=== PATIENT | female | born 1950 | race Caucasian/White ===

== ENCOUNTER 2017-01-23 09:52 | Emergency (ER) | payer OTHER ==
[~2017-01-23 09:52] MED LIST: *UNABLE1; ADVAIR INHALER INH; ADVAIR250 INH; CELEXA40 MG PO; CLARIT10 PO; COREG3 PO; COREG6 PO; CYMBALTA60 PO; DULOXETINE PO; FLEX PO; FLONASE NAS; IBU400 PO; INTEGRA PLUS PO; KLONO1 PO; KLOR-CON 88 MEQ PO; LEVAQUIN5T PO; LIOR10 PO; MAGOX4 PO; MELOXICAM PO; MOBIC15 MG PO; MUCINEX DM1 TAB PO; NEUR300 PO; OTC POTASSIUM PO; PERCOCET1 TA4 PO; PRILOSEC40 MG PO; PROAIR HFA INH; SPIRO25 PO; TEARS NATURA OPH; VENTOLIN HFA INH; X5 PO; [UNRECOGNIZED DRUG - OTHER] TOP
[2017-07-04] MEDS ORDERED: HALF81 PO (23:05)
[2017-07-04] MEDS ORDERED: SPIRO25 PO (23:05)
[2017-07-04] MEDS ORDERED: VOLTAREN1 % TOP (23:06)
[2017-07-04] MEDS ORDERED: OXYCOD PO (23:07)
[2017-07-04] MEDS ORDERED: DUONEB INH (23:07)
[2017-07-04] MEDS ORDERED: VITD PO (23:07)
[2017-07-04] MEDS ORDERED: MAGOX4 PO (23:08)
[2017-07-04] MEDS ORDERED: SINGULAIR1 PO (23:08)
[2017-07-04] MEDS ORDERED: TOPAMAX25 PO (23:08)
[2017-07-04] MEDS ORDERED: ATRONASAL6 NAS (23:09)
[2017-07-04] MEDS ORDERED: COREG3 PO (23:10)
[2017-07-04] MEDS ORDERED: FOSAMAX70 MG PO (23:10)
[2017-07-04] MEDS ORDERED: ANOROELLIPTA INH (23:10)
[2017-07-04] MEDS ORDERED: LIPITOR10 PO (23:11)
[2017-07-04] MEDS ORDERED: SEROQUEL50 MG PO (23:12)
[2017-07-04] MEDS ORDERED: PROAIR HFA INH (23:12)
[2017-07-04] MEDS ORDERED: NITROSTAT0.4 MG PO (23:12)
[2017-07-04] MEDS ORDERED: KLONO5 PO (23:12)
[2017-07-04] MEDS ORDERED: TUMS E-X750 M2 PO (23:14)
[2017-07-04] MEDS ORDERED: ROLAIDS PO (23:15)
[2017-07-04] MEDS ORDERED: SYSTANE OPH (23:15)
[2017-07-04] MEDS ORDERED: MIRALAX POWDER1 PKT PO (23:15)
[2017-07-04] MEDS ORDERED: CORTISONE INJECTION IM (23:16)
== END 2017-01-23 11:00 | disposition home or self-care (01) ==
LOC: ER 09:52
DX: M25.552 Pain in left hip (principal); M25.562 Pain in left knee; J44.9 Chronic obstructive pulmonary disease, unspecified; I10 Essential (primary) hypertension; Z88.5 Allergy status to narcotic agent; Z88.6 Allergy status to analgesic agent; Z91.040 Latex allergy status; Z88.8 Allergy status to other drugs, medicaments and biological substances; Z79.899 Other long term (current) drug therapy; W19.XXXA Unspecified fall, initial encounter
CPT/HCPCS: 73502-LT; 73560-LT; 96372; 99284; J1170

== ENCOUNTER 2017-04-12 18:24 | Inpatient (IN) | payer OTHER ==
--- NOTE | ~2017-04-12 | HP ---
History And Physical [facility] [address] [place]. [address] NAME: ASHLY SANTOYO : 50 STATUS : ADM Dannielle PAT#: [id number] AGE: 66 ADM/REG DATE : 04/12/17 MR#: [id number] REPORT SERV DATE: 04/13/17 DICTATED BY: DEVIN ROSALES DATE: 04/12/17 REPORT STATUS : Draft TRANSCRIBED BY: MODL DATE: 04/12/17 DATE OF ADMISSION: 04/12/2017 POINT OF ENTRY: [facility] Emergency Department. PRIMARY PROTOTYPE CARPENTER: Dr. Johnson. CHIEF COMPLAINT: Chest pain and dyspnea on exertion. HISTORY OF PRESENT ILLNESS: Ms. Bear is a 66-year-old female with a history of nonobstructive coronary disease as well as chronic systolic congestive heart failure with ejection fraction of 30 to 35% and COPD, who presents here today with a two-week history of progressive worsening chest pressure and dyspnea on exertion. The patient states that she is always short of breath secondary to COPD. However, over the last two weeks, she has noted worsening dyspnea on exertion. The patient also reports a two week history of almost constant left-sided chest pressure. Given these symptoms, she saw Dr. Reyna in clinic this week and was scheduled for an outpatient PET scan this Thursday. The patient presented to the emergency department for this evening as her chest pressure worsened over the last day and now creating chest pain. The patient also reports troubles over the last few weeks with headaches, nausea, and dizziness, but denies any sinus pain or pressure. Denies any fevers, night sweats, or chills. Does have some chronic postnasal drip. Initial evaluation in the emergency department notable for EKG that was nonischemic. Troponin elevated at 0.09. Labs otherwise unremarkable. CT scan of the brain was negative but did show an air-fluid level in the sinus concerning for possible acute sinusitis. Clinical correlation recommended. The patient was subsequently placed on a heparin drip. Attempt made to admission for the CPOU was declined by Cardiology given CT head findings of possible acute sinusitis. Therefore, the Hospitalist Service was asked to admit the patient. REVIEW OF SYSTEMS: Comprehensive review of systems otherwise negative unless listed in history of present illness. PREVIOUS MEDICAL HISTORY: 1. Nonobstructive coronary artery disease. 2. Chronic kidney stage 2. Baseline creatinine of approximately 1.1 to 1.2. 3. Chronic systolic congestive heart failure with ejection fraction of 30% to 35%. 4. Anxiety. 5. Depression. 6. Neuropathy. 7. Chronic pain, on chronic narcotics. History And Physical [address] [address] NAME: ASHLY SANTOYO : 50 STATUS : ADM Dannielle PAT#: [id number] AGE: 66 ADM/REG DATE : 04/12/17 MR#: [id number] REPORT SERV DATE: 04/13/17 DICTATED BY: DEVIN ROSALES DATE: 04/12/17 REPORT STATUS : Draft TRANSCRIBED BY: MADELYN DATE: 04/12/17 8. Obstructive sleep apnea, noncompliant with CPAP therapy. 9. COPD p.r.n. oxygen. SURGICAL HISTORY: 1. Abdominal hysterectomy. 2. Tubal ligation. 3. Cholecystectomy. 4. Umbilical hernia repair. 5. Thoracic spinal fusion. 6. Bilateral TKA. 7. AICD insertion. 8. Gastric bypass. 9. Single oophorectomy. ALLERGIES: 1. ALBUTEROL 2 PUFF INHALATION P.R.N. 2. ASPIRIN 80 MG DAILY. 3. ATORVASTATIN 10 MG AT BEDTIME. 4. CARVEDILOL 3.125 MG B.I.D. 5. KLONOPIN 0.5 MG DAILY. 6. VITAMIN D 50,000 UNITS WEEKLY. 7. MAGNESIUM OXIDE 400 MG DAILY. 8. NITROGLYCERIN 0.4 MG SUBLINGUAL P.R.N. 9. ROXICODONE 10 MG Q.4 HOURS P.R.N. 10.SEROQUEL 50 MG AT BEDTIME. 11.ALDACTONE 12.5 MG DAILY P.R.N. SOCIAL HISTORY: She is a former smoker, quit about 10 years ago. Denies any alcohol or illicits. FAMILY MEDICAL HISTORY: Mother with cancer. Father as well as siblings with coronary artery disease. LABS AND IMAGIN. White count 10.3, hemoglobin 11.8, hematocrit 38.1, and platelet count 183. INR 1.2. 2. Sodium is 143, potassium 3.8, chloride 110, carbon dioxide 28, BUN 16, creatinine 1.1, glucose is 105, calcium is 8.5, and magnesium is 1.9. 3. Lipase is 189. 4. CK is 28, CK-MB is less than 0.5, troponin 0.09. 5. CT scan of the brain is negative for any acute intracranial abnormality. It is concerning for possible acute sinusitis with evidence of a right sphenoid possible air- fluid level. 6. Chest x-ray per my review shows no acute cardiopulmonary abnormality. 7. EKG per my review shows normal sinus rhythm and occasional PVCs with no evidence of any acute ischemia or infarction. PHYSICAL EXAMINATION: History And Physical [address] [address] NAME: ASHLY SANTOYO : 50 STATUS : ADM Dannielle PAT#: [id number] AGE: 66 ADM/REG DATE : 04/12/17 MR#: [id number] REPORT SERV DATE: 04/13/17 DICTATED BY: DEVIN ROSALES DATE: 04/12/17 REPORT STATUS : Draft TRANSCRIBED BY: MODChelo DATE: 04/12/17 VITAL SIGNS: Temperature is 98.3 degrees Fahrenheit, pulse is 79, respirations 22, saturating 95% on room air, and blood pressure 147/65. GENERAL: The patient is awake, alert, in no acute distress. Resting comfortably in bed. She is a well-developed, well-nourished, female. HEENT: Atraumatic and normocephalic. Moist mucous membranes. Pupils equal, round, and reactive to light and accommodation. Extraocular eye movements intact. No scleral icterus. I do not appreciate any sinus pressure on palpation. NECK: No jugular venous distention. No carotid bruits. CARDIAC: Regular rate and rhythm. No murmurs or gallops. Normal S1, S2. LUNGS: Clear to auscultation bilaterally. No wheezes, rhonchi, or crackles. ABDOMEN: Soft, nontender, nondistended. Good bowel sounds. No rebound, guarding, or rigidity. EXTREMITIES: Warm and perfused. No cyanosis, clubbing, with trace pedal edema. SKIN: Warm and dry. PSYCH: Affect appropriate. NEURO: Alert and oriented x3. Cranial nerves 2 through 12 grossly intact. Speech is normal. Gait not assessed. ASSESSMENT: Ms. Santoyo is a 66-year-old female who presents with multiple complaints but primarily dyspnea on exertion as well as progressive worsening of chest pressure and chest pain, in fact was found to have a troponin of 0.09 concerning for ACS and mmd-EF-txiphklpj myocardial infarction. PROBLEM LIST: 1. ACS - ztm-LK-eyuzkpkok myocardial infarction. 2. Dyspnea on exertion. 3. Chronic systolic congestive heart failure. 4. Possible acute sinusitis. 5. Headache. 6. History of COPD, not on home oxygen without exacerbation at this time. PLAN: 1. ACS - lzy-ZM-pecbvquye myocardial infarction. We will place the patient on a heparin drip. She is on a daily aspirin. We will increase her atorvastatin to 40 mg at bedtime. Continue her home beta-emily with carvedilol 3.125 mg b.i.d. Cardiology will be consulted in the morning. We will make the patient nothing by mouth in anticipation of possible cardiac catheterization versus alternative cardiac imaging. We will continue to trend out cardiac enzymes. 2. Dyspnea on exertion. Unclear etiology at this time. Chest x-ray is clear. Her exam is clear at this time, likely related to ACS. We will check a BNP level. Continue the patient's home p.r.n. albuterol. I do not appreciate any exacerbation of COPD at this time. 3. Possible acute sinusitis. We will empirically place the patient on some oral Augmentin to see if this helps with the patient's symptoms primarily including headache. 4. Headache. CT scan of brain was negative except for possible acute sinusitis. Place the patient on Augmentin as well as some low-dose pain control. 5. DVT prophylaxis. Heparin infusion. History And Physical [address] [address] NAME: ASHLY SANTOYO : 50 STATUS : ADM Dannielle PAT#: [id number] AGE: 66 ADM/REG DATE : 04/12/17 MR#: [id number] REPORT SERV DATE: 04/13/17 DICTATED BY: DEVIN ROSALES DATE: 04/12/17 REPORT STATUS : Draft TRANSCRIBED BY: MADELYN DATE: 04/12/17 CODE STATUS: The patient wishes to be full code. LENORA/MADELYN Devin Rosales MD / [id number] CC: Dariel Patino M.D. William Warren, M.D.
--- NOTE | ~2017-04-12 | CN ---
Consultation Report [facility] [address] [place]. [address] NAME: SAHLY SANTOYO : 50 STATUS : ADM Dannielle PAT#: [id number] AGE: 66 ADM/REG DATE : 04/12/17 MR#: [id number] REPORT SERV DATE: 04/14/17 DICTATED BY: KEITH CUMMINGS DATE: 04/13/17 REPORT STATUS : Draft TRANSCRIBED BY: MODL DATE: 04/13/17 DATE OF CONSULTATION: 04/13/2017 REASON FOR CONSULTATION: Chest pressures. PRIMARY BODY TECHNICIAN/PAINTER: Jose R Johnson M.D. HISTORY OF PRESENT ILLNESS: Ms. Santoyo is a pleasant 66-year-old female with a history of nonischemic cardiomyopathy (LVEF 30%, echo 2014); hypertension; hyperlipidemia; sleep apnea, not compliant with CPAP; and mild nonobstructive coronary disease as of angiogram in 2014, who presents to [facility] with complaints of ongoing chest pressures. She has had chest pressures ranging from 2/10 to 6/10 as well as increased dyspnea, dizziness, and nausea over the past two to three weeks. She was recently seen at the [facility] by Dr. Reyna with a plan to have a cardiac PET stress test this week. She reports that her pressures were bothersome enough for her to present to the hospital prior to completion of this test. She otherwise has no new complaints. She does have some headaches as well that started about a month ago and have increased in intensity over the past few weeks. Here, she has had cardiac enzymes that have been flat with a troponin of 0.09, 0.09, and 0.08 and CK of 28 and 30 as well as the MB fraction that is negative at less than 0.5 and 1.0. Her BNP is 30.5. ALLERGIES: 1. CODEINE. 2. THIOPENTAL. 3. LATEX. 4. MORPHINE. 5. PAPER TAPE. SOCIAL HISTORY: Lives at home with her . Denies drinking alcohol, smoking, or doing drugs. FAMILY HISTORY: Noncontributory for premature cardiovascular disease. REVIEW OF SYSTEMS: As above, all other systems otherwise negative. HOME MEDICATIONS: 1. Albuterol. 2. Aspirin. 3. Lipitor. 4. Coreg. 5. Klonopin. 6. Vitamin D. 7. Mag-Ox. 8. Nitroglycerin as needed. Consultation Report [facility] [address] [place]. [address] NAME: ASHLY SANTOYO : 50 STATUS : ADM Dannielle PAT#: [id number] AGE: 66 ADM/REG DATE : 04/12/17 MR#: [id number] REPORT SERV DATE: 04/14/17 DICTATED BY: KEITH CUMMINGS DATE: 04/13/17 REPORT STATUS : Draft TRANSCRIBED BY: MADELYN DATE: 04/13/17 9. Roxicodone. 10.Seroquel. 11.Aldactone. PHYSICAL EXAMINATION: VITAL SIGNS: Blood pressure 139/60, pulse 64 and sinus rhythm, temperature 96.9. GENERAL: Morbidly obese, no acute distress, well developed, well nourished, conversant. NEURO: Awake, alert, and oriented x3. No focal deficits, appropriate mood. HEENT: Moist mucous membranes. Anicteric sclerae. No nasal discharge. NECK: No JVD. No carotid bruit. RESPIRATORY: Normal work of breathing. Diminished breath sounds throughout. CARDIAC: Regular rate and rhythm. Diminished cardiac sounds. No obvious murmurs, rubs, or gallops. ABD: Soft, non-tender, non-distended. No rebound or guarding. EXT: 1+ peripheral pulses bilaterally with trace edema in her bilateral lower extremities. SKIN: Warm, dry, and intact. No rash. PERTINENT TEST FINDINGS: Potassium 3.8, creatinine 1.1. White blood cell count 9.6, hemoglobin 11.7. Troponin 0.09, 0.09, and 0.08; CPK 28 and 30; CK-MB less than 0.5 and 1.0. BNP 30.5. EKG with sinus bradycardia, left axis deviation, borderline criteria for LVH with repolarization abnormality, occasional PVCs, no definitive ischemic ST-T changes. IMPRESSION AND PLAN: Ms. Santoyo is a pleasant 66-year-old female with a history of nonischemic cardiomyopathy (30%) and nonobstructive/mild coronary artery disease as of angiogram two years ago, who presents with ongoing substernal chest pressures and flat troponin trend with normal CPK and normal CK-MB fractions. Her EKG is also not particularly remarkable. In light of these collective findings, I recommend proceeding with a cardiac PET stress test today. In addition, it will be helpful to update her functional data with a repeat echocardiogram at this time. Otherwise, she is fully compensated from a heart failure perspective and appears to be euvolemic today. Accordingly, I recommend continuation of her cardiovascular regimen without change at this time. SEBASTIÁN/MADELYN Keith Cummings MD / [id number] CC: Dariel Patino M.D.
--- NOTE | ~2017-04-12 | CN ---
Consultation Report [facility] [address] [place]. [address] NAME: ASHLY SANTOYO : 50 STATUS : ADM Dannielle PAT#: [id number] AGE: 66 ADM/REG DATE : 04/12/17 MR#: [id number] REPORT SERV DATE: 04/14/17 DICTATED BY: ASHLEY VILLANUEVA DATE: 04/13/17 REPORT STATUS : Draft TRANSCRIBED BY: MODL DATE: 04/13/17 NEUROLOGY CONSULTATION DATE OF CONSULTATION: 04/13/2017 REASON FOR CONSULTATION: Headache and abnormal CT finding. HOSPITALIST: Bisi Williamson M.D. INFANT AND TODDLER TEACHER: Jose R Johnson M.D. HISTORY OF PRESENT ILLNESS: The patient is a 66-year-old female, who presented to the hospital with a two-week history of open "chest pressure." The patient states she did not have chest pain, rather she had pressure across her chest with dyspnea on exertion. Granted the patient has COPD and constantly has dyspnea on exertion, but over the last two weeks, it has significantly worsened. She also mentions that she has had constant left-sided chest pressure. Because of this, she went and saw Dr. Reyna in the office last week and he scheduled her to have a PET scan on Thursday. The patient also complained of a sudden onset of severe headache. This happened around the same time she started to have left-sided chest pressure. The headache came on suddenly and she had associated nausea without vomiting. When asked to rate her pain at that time on a Likert scale of 0 to 10, she rated it at 7/10. She stated that the headache was predominantly occipital with some neck stiffness. She denied any fever, chills, diaphoresis, or diarrhea. During that first week, her headache would come and go, however, by the second week, she had a constant headache, which again was predominantly in the occipital region with associated neck stiffness. Again, she rated it at 7/10. She denied any photophobia or phonophobia. PAST MEDICAL HISTORY: Nonobstructive coronary artery disease, chronic systolic heart failure with an EF of 30% to 35% (AICD), COPD, chronic kidney disease stage 2, depression, anxiety, neuropathy, chronic pain secondary to scoliosis, chronic narcotic use, history of tobacco abuse, obesity, scoliosis, obstructive sleep apnea, and noncompliance with CPAP. PAST SURGICAL HISTORY: Total abdominal hysterectomy with unilateral oophorectomy, tubal ligation, cholecystectomy, umbilical hernia repair, thoracic spinal fusion, five knee surgeries without a total knee arthroplasty, AICD placement, gastric bypass, bladder suspension, and UPPP. MEDICATIONS: Home medication list includes albuterol inhaler, aspirin 81 mg daily, Lipitor 10 mg at bedtime, Coreg 3.125 mg twice a day, Klonopin 0.5 mg daily p.r.n., vitamin D3 50,000 units weekly, magnesium oxide 400 mg daily, nitroglycerin 0.4 mg sublingual p.r.n., oxycodone 10 mg every four hours p.r.n., Seroquel 50 mg at bedtime, and Aldactone 12.5 mg daily p.r.n. edema. ALLERGIES: CODEINE, PENTOTHAL, LATEX, MORPHINE, ASPIRIN INTOLERANCE, AND PAPER TAPE. Consultation Report [address] [address] NAME: ASHLY SANTOYO : 50 STATUS : ADM Dannielle PAT#: [id number] AGE: 66 ADM/REG DATE : 04/12/17 MR#: [id number] REPORT SERV DATE: 04/14/17 DICTATED BY: ASHLEY VILLANUEVA DATE: 04/13/17 REPORT STATUS : Draft TRANSCRIBED BY: MADELYN DATE: 04/13/17 SOCIAL HISTORY: The patient is . She has two children. She is disabled from her scoliosis and chronic pain. She quit smoking 10 years ago. Does not drink alcohol or use illicits. FAMILY HISTORY: The patient's mother at the age of 62 from lung cancer. Her father is 88 and still alive, he has had a myocardial infarction. She has three brothers who are alive, among them they suffer from diabetes, hypertension, one has had an NC and one has mild mental retardation. REVIEW OF SYSTEMS: Please refer to HPI for pertinent positives. PHYSICAL EXAMINATION: VITAL SIGNS: The patient is a 66-year-old female, who stands 5 feet 5 inches tall and weighs 250 pounds. She is afebrile. Heart rate 71, respiratory rate 16, O2 saturations on room air of 93%, blood pressure 120/57. NEURO: The patient was asleep, but awakened easily. She is oriented x4. She is cooperative. Speech is clear. Language fluent. Pupils are 3 mm. PERRLA. Cranial nerves 2 through 12 are intact. Vision via confrontation is full in both marion. No pronator drift. No dysmetria, tremor, or asterixis. No ataxia with uhynpw-es-nltb or zgbc-ov-ttht. Upper extremity strength is 5/5. Upper DTRs are 1+ bilaterally. No reported sensory deficits. Lower extremity strength is 4/5 bilaterally. No reported sensory deficits. Lower DTRs are 1+ bilaterally. Downgoing toes. The patient can get out of the bed without any difficulty. Good locomotion. Gait is unbalanced due to scoliosis, however, she is non- ataxic. She is unable to tandem. Romberg negative. NECK: No carotid bruits, JVD, or thyromegaly. CHEST: Lung sounds reveal musical wheezes. No cough. CARDIAC: Regular rate and rhythm. LABORATORY DATA: CBC normal. BMP on 04/12/2017 was normal. Troponin mildly elevated at 0.09 and 0.08 consecutively. IMAGING: CT of the brain shows a subtle density in the right frontal lobe, which was not visualized on her last CT of the brain. Chest x-ray, no acute changes. ASSESSMENT AND PLAN: 1. Abnormal CT of the brain, etiology unknown. The patient is unable to have an MRI due to her AICD. She will have to have a CT repeated with contrast and a CTA of the head and neck. Differential diagnoses could include malignancy, old stroke, aneurysm, or artifact. 2. Severe headache, most likely secondary to #1. At this time, the patient will be given a Depakote cocktail, which would include Depacon 250 mg IV plus Compazine 5 mg IV plus Ativan 0.25 mg IV. The patient requested to have this given after supper. She will also have lab work, which will include a C-reactive protein and sedimentation rate. If Consultation Report [address] [place]. [address] NAME: ASHLY SANTOYO : 50 STATUS : ADM Dannielle PAT#: [id number] AGE: 66 ADM/REG DATE : 04/12/17 MR#: [id number] REPORT SERV DATE: 04/14/17 DICTATED BY: ASHLEY VILLANUEVA DATE: 04/13/17 REPORT STATUS : Draft TRANSCRIBED BY: MADELYN DATE: 04/13/17 all the above come back negative, the patient will undergo a lumbar puncture to rule out meningitis. 3. Non-ST segment elevation myocardial infarction, this was managed per Cardiology. Thank you again for including us in consultation. We will follow with you. TAVON/MADELYN Ashley Villanueva DNP, ACNP-BC / [id number] CC: Dariel Patino M.D.
--- NOTE | ~2017-04-12 | DS ---
Discharge Summary [facility] [address] [place]. [address] NAME: ASHLY SANTOYO : 50 STATUS : DIS IN PAT#: [id number] AGE: 66 ADM/REG DATE : 04/12/17 MR#: [id number] REPORT SERV DATE: 04/15/17 DICTATED BY: ORTIZ HARRIS DATE: 04/15/17 REPORT STATUS : Draft TRANSCRIBED BY: MODL DATE: 04/15/17 ADMISSION DATE: 04/12/2017 DISCHARGE DATE: 04/15/2017 FINAL HOSPITAL DIAGNOSES: 1. Chest pain. 2. Headache. 3. Chronic kidney disease. 4. Anxiety and depression. CONSULTATIONS: 1. Cardiology, Dr. Bacon. 2. Neurology. PROCEDURES: 1. CT scan of the brain done on 04/12/2017 showing subtle density in the right frontal region not described on the presented report. If headaches persist, recommend MRI. CTA of the brain showing unremarkable MRA of the carotid, dominant left vertebral, otherwise normal caliber, antegrade flow, bilateral vertebral arteries. Unremarkable intracranial MRA. 2. LP done on 04/14/2017 showing no wbc's, no positive cultures as of yet. Opening pressure was 31. 3. Cardiac PET done on the 04/13/2017 showing no ischemia. Overall indeterminate risk scan due to moderately decreased LV systolic function. 4. Echocardiogram done on 04/14/2017 showing EF of 40%, comparing to 38 on PET, and 35% back in May of 2015. Moderate LV diastolic dysfunction, right ventricular systolic function, intact trace mitral and tricuspid regurgitation. CURRENT PHYSICAL SIGNS AND HISTORY OF PRESENT ILLNESS: Please see the dictated H and P by Dr. Anderson. In brief, the patient is a 66-year-old female, who was admitted with complaint of chest pain and headache. Vital signs at the time of admission were stable, and the patient has been afebrile during her hospital stay. Lab work; initial creatinine was 1.11. Subsequent recheck was 1.2. Electrolytes were otherwise unremarkable. Troponin were 0.09, 0.09, 0.08, and 0.08. C-reactive protein was slightly elevated at 12.5. Spinal tap showed a protein of 47.7. No leukocytosis or significant anemia on her CBC. HSV is pending on her tap. HOSPITAL COURSE: The patient was admitted. Home medications were reviewed and ordered appropriately. She was started on heparin protocol for her chest pain. Cardiology and Neurology were consulted. Cardiology recommended the echo and PET, and when these were negative, I did not recommend any further intervention. Dr. Williamson initially took care of the patient in consult and Neurology recommendation and referred the MRI; however, it was noted the patient's pacer was noncompatible. She then underwent a lumbar puncture, which was as noted above. When patient ruled out, her heparin drip was discontinued. I saw the patient the following day, her symptoms were improving, but did not resolve. She stayed an additional 24 hours. She had some relief with her Topamax. We discussed other Discharge Summary [address] [place]. [address] NAME: ASHLY SANTOYO : 50 STATUS : DIS IN PAT#: [id number] AGE: 66 ADM/REG DATE : 04/12/17 MR#: [id number] REPORT SERV DATE: 04/15/17 DICTATED BY: ORTIZ HARRIS DATE: 04/15/17 REPORT STATUS : Draft TRANSCRIBED BY: MADELYN DATE: 04/15/17 interventions including further referrals, titration of her medications. She preferred to be discharged home with outpatient followup. DISPOSITION: She is discharged home. We will schedule a followup Neurology appointment in one to two months. We will schedule her to follow up with her PCP in one to two weeks. HOME MEDICATIONS: Prescription written for Topamax 50 #30 one per day and Augmentin 875 b.i.d. to finish treatment for sinusitis. She will otherwise continue aspirin 81, Lipitor 10, Coreg 3.125 b.i.d., vitamin D, magnesium 400 daily, albuterol inhaler, Nitrostat p.r.n. sublingual, Seroquel 50 at h.s., Klonopin 0.5 daily, Percocet 10 q.4, and Aldactone 12.5 one per day. DICTATED BY: Dariel Peña/MADELYN Ortiz Harris M.D. / [id number] CC: Dariel Peña M.D.
[2017-04-12 18:51] LABS: BASOPHILS 0.2 %; BASOPHILS ABSOLUTE 0.02 10/3/uL (0.0-0.16); EOSINOPHILS 2.8 %; EOSINOPHILS ABSOLUTE 0.29 10/3/uL (0.0-0.53); ER CBC TAT 0 Hrs 12 Mins; HEMATOCRIT 38.1 % (36.0-48.0); HEMOGLOBIN 11.8 g/dL (12.0-16.0); IMMATURE GRANULOCYTES 0.2 %; IMMATURE GRANULOCYTES ABSOLUTE 0.02 10/3/uL (0.0-0.11); MANUAL DIFF NO %; MEAN CORPUSCULAR HEMOGLOB 29.4 pg (26.0-34.0); MEAN CORPUSCULAR VOLUME 94.8 fL (80-100); MEAN PLATELET VOLUME 11.5 fL (9.2-13.0); MONOCYTES 7.4 %; MONOCYTES ABSOLUTE 0.76 10/3/uL (0.21-1.20); NEUTROPHILS 53.4 %; PLATELET COUNT 183 10/3/uL (150-400); RBC DISTRIBUTION WIDTH 13.6 % (12.0-16.0); RED CELL COUNT 4.02 10/6/uL (4.0-5.6); WHITE BLOOD CELLS 10.3 10/3/uL (4.5-10.5)
[2017-04-12 18:57] LABS: INTERNATIONAL NORMAL RATI 1.2 UNITS (-); PARTIAL THROMBO TIME 29.2 SEC (22.5-37.2); PROTIME (NOT ORD) 14.6 SEC (12.0-14.5)
[2017-04-12 19:13] LABS: BUN (BLOOD UREA NITROGEN) 16 MG/DL (6-23); CALCIUM, SERUM 8.5 MG/DL (8.5-10.4); CHLORIDE, SERUM 110 MMOL/L (96-112); CO2 (CARBON DIOXIDE) 28 MMOL/L (24-34); CREATININE 1.11 MG/DL (0.55-1.02); GFR AFRICAN AMERICAN 60 ML/MIN (>=60); GFR NON AFRICAN AMERICAN 52 ML/MIN (>=60); GLUCOSE, SERUM 105 MG/DL (60-99); POTASSIUM, SERUM 3.8 MMOL/L (3.5-5.3); SODIUM, SERUM 143 MMOL/L (135-148)
[2017-04-12 19:15] LABS: CHEST PAIN PROFILE TAT 0 Hrs 36 Mins; TROPONIN I 0.09 NG/ML (<0.05)
[2017-04-12 20:27] LABS: CPK 28 U/L (0-200)
[2017-04-12 20:28] LABS: CK-MB < 0.5 NG/ML
[2017-04-12] MEDS ORDERED: ASAB PO (21:51)
[2017-04-12] MEDS ORDERED: VITD PO (21:52)
[2017-04-12] MEDS ORDERED: NITROQUICK0.4 MG SL (21:52)
[2017-04-12] MEDS ORDERED: LIPITOR10 PO (21:52)
[2017-04-12] MEDS ORDERED: SEROQUEL50 MG PO (21:52)
[2017-04-12] MEDS ORDERED: COREG3 PO (21:53)
[2017-04-12] MEDS ORDERED: KLONO5 PO (21:53)
[2017-04-12] MEDS ORDERED: MAGOX4 PO (21:54)
[2017-04-12] MEDS ORDERED: OXYCOD PO (21:54)
[2017-04-12] MEDS ORDERED: SPIRO25 PO (21:55)
[2017-04-13 06:45] LABS: BASOPHILS 0.3 %; BASOPHILS ABSOLUTE 0.03 10/3/uL (0.0-0.16); EOSINOPHILS 3.3 %; EOSINOPHILS ABSOLUTE 0.32 10/3/uL (0.0-0.53); HEMATOCRIT 37.7 % (36.0-48.0); HEMOGLOBIN 11.7 g/dL (12.0-16.0); IMMATURE GRANULOCYTES 0.2 %; IMMATURE GRANULOCYTES ABSOLUTE 0.02 10/3/uL (0.0-0.11); LYMPHOCYTES 45.8 %; LYMPHOCYTES ABSOLUTE 4.39 10/3/uL (0.67-4.30); MEAN CORPUSCULAR HEMOGLOB 29.8 pg (26.0-34.0); MEAN CORPUSCULAR VOLUME 95.9 fL (80-100); MEAN PLATELET VOLUME 11.5 fL (9.2-13.0); MONOCYTES 7.7 %; MONOCYTES ABSOLUTE 0.74 10/3/uL (0.21-1.20); NEUTROPHILS 42.7 %; NEUTROPHILS ABSOLUTE 4.09 10/3/uL (2.02-8.40); PLATELET COUNT 176 10/3/uL (150-400); RBC DISTRIBUTION WIDTH 13.5 % (12.0-16.0); RED CELL COUNT 3.93 10/6/uL (4.0-5.6); WHITE BLOOD CELLS 9.6 10/3/uL (4.5-10.5)
[2017-04-13 06:51] LABS: MANUAL DIFF NO %
[2017-04-13 06:58] LABS: CPK 30 U/L (0-200); HDL CHOLESTEROL 39 MG/DL (> 49); SGPT(ALT) 26 U/L (5-65)
[2017-04-13 07:00] LABS: CHOL/HDL RATIO(NOT ORDER) 3.1 (0-5); CHOLESTEROL 122 MG/DL (< 200); LDL CHOLESTEROL 53 MG/DL (< 130); NON-HDL CHOLESTEROL 83 MG/DL (< 160); TRIGLYCERIDE 153 MG/DL (< 150); TROPONIN I 0.08 NG/ML (<0.05)
[2017-04-13 13:16] LABS: CPK 33 U/L (0-200)
[2017-04-13 13:20] LABS: CK-MB 1.1 NG/ML; TROPONIN I 0.08 NG/ML (<0.05)
[2017-04-14 06:28] LABS: BASOPHILS 0.4 %; BASOPHILS ABSOLUTE 0.03 10/3/uL (0.0-0.16); EOSINOPHILS 4.1 %; EOSINOPHILS ABSOLUTE 0.33 10/3/uL (0.0-0.53); HEMATOCRIT 37.1 % (36.0-48.0); HEMOGLOBIN 11.5 g/dL (12.0-16.0); IMMATURE GRANULOCYTES 0.2 %; IMMATURE GRANULOCYTES ABSOLUTE 0.02 10/3/uL (0.0-0.11); LYMPHOCYTES ABSOLUTE 3.41 10/3/uL (0.67-4.30); MANUAL DIFF NO %; MEAN CORPUSCULAR HEMOGLOB 29.6 pg (26.0-34.0); MEAN CORPUSCULAR VOLUME 95.6 fL (80-100); MEAN PLATELET VOLUME 11.8 fL (9.2-13.0); MONOCYTES 8.1 %; MONOCYTES ABSOLUTE 0.66 10/3/uL (0.21-1.20); NEUTROPHILS 45.2 %; NEUTROPHILS ABSOLUTE 3.67 10/3/uL (2.02-8.40); PLATELET COUNT 173 10/3/uL (150-400); RBC DISTRIBUTION WIDTH 13.8 % (12.0-16.0); RED CELL COUNT 3.88 10/6/uL (4.0-5.6); WHITE BLOOD CELLS 8.1 10/3/uL (4.5-10.5)
[2017-04-14 06:53] LABS: ALBUMIN 3.1 G/DL (3.5-5.0); BUN (BLOOD UREA NITROGEN) 16 MG/DL (6-23); CALCIUM, SERUM 8.6 MG/DL (8.5-10.4); CHLORIDE, SERUM 108 MMOL/L (96-112); CO2 (CARBON DIOXIDE) 26 MMOL/L (24-34); GFR AFRICAN AMERICAN 55 ML/MIN (>=60); GFR NON AFRICAN AMERICAN 47 ML/MIN (>=60); GLOBULIN 3.1 G/DL (2.5-4.1); GLUCOSE, SERUM 114 MG/DL (60-99); POTASSIUM, SERUM 4.4 MMOL/L (3.5-5.3); SGOT(AST) 16 U/L (5-40); SGPT(ALT) 27 U/L (5-65); SODIUM, SERUM 140 MMOL/L (135-148); TOTAL BILIRUBIN 0.3 MG/DL (0-1.2); TOTAL PROTEIN 6.2 G/DL (6.0-8.5)
[2017-04-14 06:56] LABS: ALKALINE PHOSPHATASE 103 U/L (45-117); C-REACTIVE PROTEIN 12.5 MG/L (<8.0)
[2017-04-14 07:27] LABS: SED RATE 14 MM/HR (0-20)
[2017-04-14 12:26] LABS: PARTIAL THROMBO TIME 29.1 SEC (22.5-37.2); PROTIME (NOT ORD) 13.5 SEC (12.0-14.5)
[2017-04-14 15:15] LABS: CSF APPEARANCE (NOT ORD) CLEAR (CLEAR); CSF BASO 0 % (NO REF RANGE); CSF COLOR (NOT ORD) COLORLESS (COLORLESS); CSF EOS 0 % (0-1); CSF LYMPH (NOT ORD) 70 % (28-96); CSF MONO 20 % (16-56); CSF RBC (NOT ORD) 0 MM3 (NO REFERENCE); CSF SEGS (NOT ORD) 10 % (0-7); CSF WBC (NOT ORD) 2 /uL (0-10); CSF XANTHROCHROMIA NEG (NEG)
[2017-04-14 15:21] LABS: CSF APPEARANCE (NOT ORD) CLEAR (CLEAR); CSF BASO 0 % (NO REF RANGE); CSF COLOR (NOT ORD) COLORLESS (COLORLESS); CSF EOS 0 % (0-1); CSF LYMPH (NOT ORD) 78 % (28-96); CSF MONO 22 % (16-56); CSF RBC (NOT ORD) 5 MM3 (NO REFERENCE); CSF SEGS (NOT ORD) 0 % (0-7); CSF WBC (NOT ORD) 2 /uL (0-10); CSF XANTHROCHROMIA NEG (NEG)
[2017-04-14 15:43] LABS: TOTAL PROTEIN, CSF 47.7 MG/DL (15-45)
[2017-04-15] MEDS ORDERED: AUG875 PO (14:50)
[2017-04-15] MEDS ORDERED: TOPAMAX50 MG PO (14:51)
[2017-04-17 12:46] LABS: HSV DNA TYPE 1 Not Detected (NOTDET); HSV DNA TYPE 2 Not Detected (NOTDET)
[2017-07-04] MEDS ORDERED: SPIRO25 PO (23:05)
[2017-07-04] MEDS ORDERED: HALF81 PO (23:05)
[2017-07-04] MEDS ORDERED: VOLTAREN1 % TOP (23:06)
[2017-07-04] MEDS ORDERED: VITD PO (23:07)
[2017-07-04] MEDS ORDERED: OXYCOD PO (23:07)
[2017-07-04] MEDS ORDERED: DUONEB INH (23:07)
[2017-07-04] MEDS ORDERED: MAGOX4 PO (23:08)
[2017-07-04] MEDS ORDERED: TOPAMAX25 PO (23:08)
[2017-07-04] MEDS ORDERED: SINGULAIR1 PO (23:08)
[2017-07-04] MEDS ORDERED: ATRONASAL6 NAS (23:09)
[2017-07-04] MEDS ORDERED: COREG3 PO (23:10)
[2017-07-04] MEDS ORDERED: FOSAMAX70 MG PO (23:10)
[2017-07-04] MEDS ORDERED: ANOROELLIPTA INH (23:10)
[2017-07-04] MEDS ORDERED: LIPITOR10 PO (23:11)
[2017-07-04] MEDS ORDERED: SEROQUEL50 MG PO (23:12)
[2017-07-04] MEDS ORDERED: PROAIR HFA INH (23:12)
[2017-07-04] MEDS ORDERED: NITROSTAT0.4 MG PO (23:12)
[2017-07-04] MEDS ORDERED: KLONO5 PO (23:12)
[2017-07-04] MEDS ORDERED: TUMS E-X750 M2 PO (23:14)
[2017-07-04] MEDS ORDERED: SYSTANE OPH (23:15)
[2017-07-04] MEDS ORDERED: ROLAIDS PO (23:15)
[2017-07-04] MEDS ORDERED: MIRALAX POWDER1 PKT PO (23:15)
[2017-07-04] MEDS ORDERED: CORTISONE INJECTION IM (23:16)
== END 2017-04-15 15:30 | disposition home or self-care (01) | DRG 315 ==
LOC: ER 18:24 → 5NO 23:59
PROVIDERS: Emergency Medicine; Internal Medicine; Nurse Practitioner
PROC: 009U3ZX Drainage of Spinal Canal, Percutaneous Approach, Diagnostic (ICD-10-PCS; principal; 2017-04-14)
DX: I42.9 Cardiomyopathy, unspecified (principal); Z68.41 Body mass index [BMI] 40.0-44.9, adult; I13.0 Hypertensive heart and chronic kidney disease with heart failure and stage 1 through stage 4 chronic kidney disease, or unspecified chronic kidney disease; I50.22 Chronic systolic (congestive) heart failure; E66.01 Morbid (severe) obesity due to excess calories; J44.9 Chronic obstructive pulmonary disease, unspecified; M41.9 Scoliosis, unspecified; R07.9 Chest pain, unspecified; I25.10 Atherosclerotic heart disease of native coronary artery without angina pectoris; E78.5 Hyperlipidemia, unspecified; N18.2 Chronic kidney disease, stage 2 (mild); F32.9 Major depressive disorder, single episode, unspecified; G47.33 Obstructive sleep apnea (adult) (pediatric); Z95.810 Presence of automatic (implantable) cardiac defibrillator; Z79.82 Long term (current) use of aspirin; Z79.891 Long term (current) use of opiate analgesic; R51 Headache
CPT/HCPCS: 62270; 70450; 70496; 70498; 71020; 77003; 78492; 80048; 80053; 80061; 82550; 82553; 82945; 83690; 83735; 83880; 84157; 84460; 84484; 85025; 85610; 85652; 85730; 86140; 87070; 87205; 87210; 87327; 87529; 87529-59; 88112; 89051; 93005; 93017; 93306; 96374; 99285; A9270-GY; A9555; G0463; J0780; J2785; Q9967